=== PATIENT | female | born 1990 | race American Indian/Alaskan Native ===

== ENCOUNTER 2020-08-26 02:12 | Emergency (ER) | payer MEDICAID ==
--- NOTE | 2020-08-26 02:30 | Event Note ---
ED Screening Note Date of service: 08/26/20 Time: 02:27 ED Screening Note: Patient is a 30-year-old -[place] Citizen female with a history of morbid obesity who presents to the ED with complaint of acute onset persistent substernal chest pain that radiates to the mid posterior thoracic area with persistent palpitation for the last 12 hours. Patient states that the chest pain is intermittent but the palpitation has been persistent despite drinking cold water or lying down to rest. Patient also complains of shortness of breath on exertion or when she lays flat in her bed. Patient states that she has significant family history of CHF, with her mother having been diagnosed at 26 years old. Patient denies drinking caffeinated drinks, sodas, or smoking cigarettes. Patient denies dizziness, syncope, fever, chills, cough, nausea and vomiting, neck pain, upper extremity numbness and tingling or weakness, diaphoresis, sore throat, traumatic injury or heavy lifting. This initial assessment/diagnostic orders/clinical plan/treatment(s) is/are subject to change based on patients health status, clinical progression and re- assessment by fellow clinical providers in the ED. Further treatment and workup at subsequent clinical providers discretion. Patient/guardian urged not to elope from the ED as their condition may be serious if not clinically assessed and managed. Initial orders include: EKG, CBC, CMP, troponin, BNP, chest x-ray
[2020-08-26] MEDS ORDERED: ASPIRIN 325 MG TAB PO ONE (02:55)
--- NOTE | 2020-08-26 03:07 | XRay Report ---
CHEST 1 VIEW 3:00 AM INDICATION / CLINICAL INFORMATION: Chest Pain. Midsternal chest pain and palpitations on and off for the last day. COMPARISON: None available. FINDINGS: SUPPORT DEVICES: None. HEART / MEDIASTINUM: The heart size and pulmonary vasculature are normal. The aorta is normal in eduardo rodney. LUNGS / PLEURA: No significant pulmonary or pleural abnormality. No pneumothorax. ADDITIONAL FINDINGS: No significant additional findings. IMPRESSION: No acute findings. Signer Name: Umberto Hernandez MD Signed: 08/26/2020 3:02 AM Workstation Name: [id number]
[2020-08-26 03:36] LABS: Basophils # (Auto) 0.1 K/mm3 (0.0-0.1); Basophils % (Auto) 1.1 % (0.0-1.8); Eosinophils # (Auto) 0.3 K/mm3 (0.0-0.4); Eosinophils % (Auto) 3.5 % (0.0-4.3); Hematocrit 38.3 % (30.3-42.9); Lymphocytes % (Auto) 37.3 % (13.4-35.0); Mean Corpuscular HGB Conc 34 % (30-34); Mean Corpuscular Volume 86 fl (79-97); Monocytes # (Auto) 0.7 K/mm3 (0.0-0.8); Monocytes % (Auto) 8.9 % (0.0-7.3); Platelet Count 297 K/mm3 (140-440); Red Blood Count 4.48 M/mm3 (3.65-5.03); Red Cell Distribution Width 13.7 % (13.2-15.2)
--- NOTE | 2020-08-26 03:37 | Emergency Department Report ---
<ALIE MARTINEZ - Last Filed: 08/26/20 06:58> ED Chest Pain HPI - General Chief Complaint: Chest Pain Stated Complaint: CHEST PAIN PALP ALL DAY/DIZZINES/FAIGUE Source: patient Mode of arrival: Ambulatory Limitations: No Limitations - History of Present Illness Initial Comments: Patient is a 30-year-old -[place] female with a history of morbid obes ity who presents to the ED with complaint of acute onset persistent substernal chest pain that radiates to the mid posterior thoracic area with persistent palpitations for the last 12 hours. Patient states that the chest pain is intermittent but the palpitation has been persistent despite drinking cold water or lying down to rest. Patient also complaints of shortness of breath on exertion or when she lays flat in her bed. Patient states that she has significant family history of CHF, with her mother having been diagnosed at 26 years old. Patient denies drinking caffeinated drinks, sodas, or smoking cigarettes. Patient denies dizziness, syncope, fever, chills, cough, nausea and vomiting, neck pain, upper extremity numbness and tingling or weakness, diaphoresis, sore throat, traumatic injury or heavy lifting. MD Complaint: chest pain, other (Shortness of breath, mid posterior thoracic pain) -: Sudden, hour(s) (12) Onset: during exertion Pain Location: substernal Pain Radiation: back (Right posterior thoracic area) Severity: moderate Severity scale (0 -10): 5 Quality: aching, sharp Consistency: intermittent Improves With: nothing Worsens With: exertion, movement re: dyspnea. denies: nausea, vomting, diaphoresis, sense of impending doom, other Other Symptoms: palpitations. denies: cough, fever, syncope, rash, acid taste in mouth, leg swelling, burping, other Treatments Prior to Arrival: none Aspirin use within the Past 7 Days: (0) No - Related Data On Oral Contraceptives: No Previous Rx's Medication Instructions Recorded Last Taken Type Famotidine [Pepcid] 40 mg PO QHS #15 tablet 08/26/20 Unknown Rx HYDROcodone/APAP 5-325 [Borger 1 each PO Q4HR PRN #12 tablet 08/26/20 Unknown Rx 5/325] Allergies Allergy/AdvReac Type Severity Reaction Status Date / Time No Known Allergies Allergy Unverified 08/26/20 02:16 Heart Score - HEART Score History: Slightly suspicious EKG: Normal Age: < 45 Risk factors: 1-2 risk factors Troponin: < normal limit HEART Score: 1 - Critical Actions Critical Actions: 0-3 pts:0.9-1.7%risk of adverse cardiac event.Candidate for discharge ED Review of Systems Constitutional: denies: chills, fever Eyes: denies: eye pain, eye discharge, vision change ENT: denies: ear pain, throat pain Respiratory: shortness of breath, SOB with exertion. denies: cough, SOB at rest, wheezing Cardiovascular: chest pain, palpitations, dyspnea on exertion. denies: orthopnea, syncope, paroxysmal nocturnal dyspnea, other Endocrine: no symptoms reported Gastrointestinal: denies: abdominal pain, nausea, vomiting, diarrhea, constipation, hematemesis Genitourinary: denies: urgency, dysuria, discharge Musculoskeletal: denies: back pain, joint swelling, arthralgia Skin: denies: rash, lesions Neurological: denies: headache, weakness, paresthesias Psychiatric: anxiety. denies: depression Hematological/Lymphatic: denies: easy bleeding, easy bruising ED Past Medical Hx - Past Medical History Previous Medical History?: Yes Hx Psychiatric Treatment: Yes (Anxiety) Additional medical history: Morbid obesity - Surgical History Past Surgical History?: Yes Additional Surgical History: Csection x 3, Left leg infection removal - Social History Smoking Status: Former Smoker - Medications Home Medications: Home Medications Medication Instructions Recorded Confirmed Last Taken Type Famotidine [Pepcid] 40 mg PO QHS #15 tablet 08/26/20 Unknown Rx HYDROcodone/APAP 5-325 [Borger 1 each PO Q4HR PRN #12 tablet 08/26/20 Unknown Rx 5/325] ED Physical Exam - General Limitations: No Limitations General appearance: alert, in no apparent distress, obese - Head Head exam: Present: atraumatic, normocephalic, normal inspection - Eye Eye exam: Present: normal appearance, PERRL, EOMI Pupils: Present: normal accommodation - ENT ENT exam: Present: normal exam, normal orophraynx, mucous membranes moist, TM's normal bilaterally, normal external ear exam - Neck Neck exam: Present: normal inspection, full ROM - Respiratory Respiratory exam: Present: normal lung sounds bilaterally. Absent: respiratory distress, wheezes, rales, rhonchi, chest wall tenderness, accessory muscle use, decreased breath sounds, prolonged expiratory - Cardiovascular Cardiovascular Exam: Present: normal rhythm, tachycardia, normal heart sounds. Absent: systolic murmur, diastolic murmur, rubs, gallop - GI/Abdominal GI/Abdominal exam: Present: soft, normal bowel sounds. Absent: distended, tenderness, guarding, hypoactive bowel sounds, mass - Extremities Exam Extremities exam: Present: normal inspection, full ROM, normal capillary refill - Back Exam Back exam: Present: normal inspection, full ROM. Absent: tenderness, CVA tenderness (R), CVA tenderness (L), muscle spasm, paraspinal tenderness, vertebral tenderness - Neurological Exam Neurological exam: Present: alert, oriented X3, CN II-XII intact, normal gait, reflexes normal - Psychiatric Psychiatric exam: Present: normal affect, normal mood - Skin Skin exam: Present: warm, dry, intact, normal color. Absent: rash LONNIE score - Lonnie Score Age > 65: (0) No Aspirin use within the Past 7 Days: (0) No 3 or more CAD Risk Factors: (0) No 2 or more Angina events in past 24 hrs: (0) No Known CAD with more than 50% Stenosis: (0) No Elevated Cardiac Markers: (0) No ST Deviation Greater than 0.5mm: (0) No LONNIE Score: 0 ED Medical Decision Making - Lab Data Result diagrams: 08/26/20 03:04 08/26/20 03:04 - EKG Data EKG shows normal: sinus rhythm Rate: normal - EKG Data Interpretation: normal EKG 08/26/20 06:46 EKG shows normal sinus rhythm with a ventricular rate of 84 bpm and probable LVH and prolonged QT interval - Radiology Data Radiology results: report reviewed, image reviewed Findings [facility] [address] [place] [address] XRay Report Signed Patient: BLANCA MONTOYA MR#: [id number] : 1990 Acct:[id number] Age/Sex: 30 / F ADM Date: 08/26/20 Loc: ED Attending Dr: Ordering Physician: ED MD FELIBERTO Date of Service: 08/26/20 Procedure(s): XR chest 1V ap Accession Number(s): [id number] cc: ED MD FELIBERTO Fluoro Time In Minutes: CHEST 1 VIEW 3:00 AM INDICATION / CLINICAL INFORMATION: Chest Pain. Midsternal chest pain and palpitations on and off for the last day. COMPARISON: None available. FINDINGS: SUPPORT DEVICES: None. HEART / MEDIASTINUM: The heart size and pulmonary vasculature are normal. The aorta is normal in caliber. LUNGS / PLEURA: No significant pulmonary or pleural abnormality. No pneumothorax. ADDITIONAL FINDINGS: No significant additional findings. IMPRESSION: No acute findings. Signer Name: Umberto Hernandez MD Signed: 08/26/2020 3:02 AM Workstation Name: [id number] Transcribed By: RT Dictated By: Umberto Hernandez MD Electronically Authenticated By: Umberto Hernandez MD Signed Date/Time: 08/26/20301 DD/ 1 TD/TT: - Medical Decision Making This is a 30-year-old -[place] female with a history of morbid obesity who presents to the ED with complaint of acute onset persistent substernal chest pain that radiates to the mid posterior thoracic area with persistent palpitation for the last 12 hours. Patient states that the chest pain is inte rmittent but the palpitation has been persistent despite drinking cold water or lying down to rest. Patient also complains of shortness of breath on exertion or when she lays flat in her bed. Patient states that she has significant family history of CHF, with her mother having been diagnosed at 26 years old. Patient denies drinking caffeinated drinks, sodas, or smoking cigarettes. In the ED, patient is alert and oriented x3 and is not in distress but anxious, afebrile and tachycardic in triage. Chest x-ray shows no acute cardiopulmonary abnormalities or pneumonitis. The initial EKG shows A-V dissociation low voltage in precordial leads with prolonged QT intervals and a ventricular rate of 88 bpm. The initial lab test results were reviewed and are all nonactionable including troponin levels. Repeat EKG after 3 hours showed normal sinus rhythm with a ventricular rate of 84 bpm and probable LVH with prolonged QT intervals. The patient's heart score is 1 due to the patient's history of morbid obesity. The second 3 hours troponin test results are pending as at shift change at 0700 hrs. Patient care was transferred to Ms. Lamar George PA-C at shift change. She shall review the lab test results including the repeat 3-hour troponin levels and reevaluate the patient and make the final disposition of the patient. - Differential Diagnosis ACS; CHF; pneumonia; GERD; anxiety; Costochondritis; Muscle strain ED Disposition Clinical Impression: Nonspecific chest pain, Shortness of breath, Palpitations, Anxiety as acute reaction to exceptional stress GERD (gastroesophageal reflux disease) Qualifiers: Esophagitis presence: without esophagitis Qualified Code(s): K21.9 - Gastro- esophageal reflux disease without esophagitis Disposition: TO HOME OR SELFCARE Condition: Stable Instructions: Generalized Anxiety Disorder, Adult, Shortness of Breath, Adult, [id number], Nonspecific Chest Pain, Adult, [id number], Palpitations, [id number], Chest Pain (ED) Additional Instructions: I recommend I take the medication as prescribed. Follow-up with the wall worker as discussed. Follow-up with the primary care doctor listed on your discharge instructions. Return to the ER if any symptoms worsens or changes in any way Prescriptions: Famotidine [Pepcid] 40 mg PO QHS #15 tablet HYDROcodone/APAP 5-325 [Borger 5/325] 1 each PO Q4HR PRN #12 tablet PRN Reason: Pain Referrals: [facility] [Provider Group] - 3-5 Days LUKE LORENZANA [Staff Physician] - 3-5 Days Forms: Work/School Release Form(ED) <LAMAR GEORGE - Last Filed: 08/26/20 11:20> ED Review of Systems ROS: Stated complaint: CHEST PAIN PALP ALL DAY/DIZZINES/FAIGUE Other details as noted in HPI ED Course Vital Signs 08/26/20 08/26/20 08/26/20 02:16 04:00 05:30 Temperature 98.6 F Pulse Rate 102 H 84 81 Respiratory 18 22 18 Rate Blood Pressure 143/76 Blood Pressure 134/78 129/76 [Left] O2 Sat by Pulse 95 99 99 Oximetry 08/26/20 08/26/20 06:30 07:26 Temperature Pulse Rate 85 98 H Respiratory 18 20 Rate Blood Pressure Blood Pressure 123/78 116/80 [Left] O2 Sat by Pulse 99 100 Oximetry - Reevaluation(s) Reevaluation #1: 08/26/20 07:00 Case was turned over to me from Alie Martinez. Case reviewed; labs reviewed; imaging reviewed. Repeat trop pending. 08/26/20 0800: Repeat trop negative. Pt reports still with intermittent sharp chest discomfort and palpitations. No improvement with meds. Will add d-dimer to r/o PE. Reevaluation #2: CTA negative for PE; Discussed results with patient. At this time there is no inidication for admission to hospital. Patient was able to make an appointment with a wall worker at one of the same day [facility] services. He states that she is scheduled appointment for 2 PM today. Patient encouraged to keep that appointment. Patient stable at time of discharge. 08/26/20 11:19 ED Medical Decision Making - Lab Data Result diagrams: 08/26/20 03:04 08/26/20 03:04 Critical care attestation.: If time is entered above; I have spent that time in minutes in the direct care of this critically ill patient, excluding procedure time. ED Disposition Is pt being admited?: No Does the pt Need Aspirin: No Time of Disposition: 11:14
[2020-08-26 03:44] LABS: Alanine Aminotransferase 11 units/L (7-56); Albumin 3.8 g/dL (3.9-5); BUN/Creatinine Ratio 14; Blood Urea Nitrogen 11 mg/dL (7-17); Calcium 9.1 mg/dL (8.4-10.2); Hemolysis Index 2
[2020-08-26] MEDS ORDERED: ALUM-MAG HYDROXIDE-SIMETHICONE 200-200-20MG/5ML ORAL LIQD 30 ML PO ONE (06:57)
[2020-08-26] MEDS ORDERED: FAMOTIDINE 20 MG/2 ML INJ IV ONE (06:57)
[2020-08-26] MEDS ORDERED: LIDOCAINE VISCOUS 2% 15 ML ORAL LIQD PO ONE (06:57)
[2020-08-26] MEDS ORDERED: FAMOTIDINE 20 MG TAB PO ONE (07:13)
[2020-08-26 07:27] VITALS: BP 116/80
[2020-08-26] MEDS ORDERED: MORPHINE 4 MG/1 ML INJ IV ONE (08:01)
[2020-08-26] MEDS ORDERED: ONDANSETRON 4 MG/2 ML INJ IV ONE (08:01)
--- NOTE | 2020-08-26 11:01 | Cat Scan Report ---
CTA CHEST WITH CONTRAST INDICATION / CLINICAL INFORMATION: MAIN. TECHNIQUE: Axial CT images were obtained through the chest after injection of 100 cc Omni 350 IV cont rast. 3 plane MIP and/or 3D reconstructions were produced. All CT scans at this location are performe d using CT dose reduction for ALARA by means of automated exposure control. COMPARISON: Chest radiograph 08/26/2020 FINDINGS: PULMONARY ARTERIES: Suboptimal pulmonary artery opacification allows for evaluation of the central an d lobar pulmonary arteries. No definite filling defect to suggest pulmonary embolism. THORACIC AORTA: No significant abnormality. HEART: No significant abnormality. CORONARY ARTERY CALCIFICATION: None. MEDIASTINUM / ANIKA: No significant abnormality. PLEURA: No pleural effusion. No pneumothorax. LUNGS: No acute air space or interstitial disease. ADDITIONAL FINDINGS: None. UPPER ABDOMEN: No acute findings. SKELETAL STRUCTURES: No significant osseous abnormality. IMPRESSION: 1. Suboptimal pulmonary artery opacification without filling defect in the central or lobar pulmonary arteries to suggest pulmonary thromboembolism. Distal pulmonary arteries are scattered by artifact. Signer Name: Umberto Covarrubias MD Signed: 08/26/2020 10:56 AM Workstation Name: [id number]
== END 2020-08-26 11:48 | disposition home or self-care (01) ==
LOC: ED 02:12
DX: K21.9 Gastro-esophageal reflux disease without esophagitis (principal); R07.89 Other chest pain; R06.02 Shortness of breath; R00.2 Palpitations; F41.1 Generalized anxiety disorder; F43.0 Acute stress reaction; Z98.890 Other specified postprocedural states; Z79.899 Other long term (current) drug therapy; Z87.891 Personal history of nicotine dependence
CPT/HCPCS: 36415; 71045; 71275; 80053; 83880; 84484; 85025; 85379; 93005; 96374; 96375; 99284; J2270; J2405; Q9967